=== PATIENT | male | born 1965 | race Caucasian/White ===

== ENCOUNTER 2020-05-26 18:53 | Emergency (ER) | payer MEDICAID, SELFPAY ==
[2020-05-26 19:21] VITALS: BP 187/98; PULSE 72; RESP 16; TEMP 36.7; O2SAT 96; BMI 36.3
--- NOTE | 2020-05-26 19:25 | XR_ITS ---
PROCEDURE: XR FOREARM RT 2V CLINICAL INDICATION: FALL Posttraumatic pain COMPARISON: CR XR HAND RT MIN 3V from 05/26/2020 CR XR WRIST RT MIN 3V from 05/26/2020 FINDINGS: No fracture or dislocation. No lytic or blastic change. There is normal mineralization. Minimal degenerative changes at the DRUJ the with minimal hypertrophic changes of the ulnar styloid and mild ulnar minus variant. Other findings:None. IMPRESSION: No acute fracture. 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
[2020-05-26 19:31] VITALS: BP 176/107; PULSE 81; RESP 14; TEMP 36.6; O2SAT 97; BMI 32.3
--- NOTE | 2020-05-26 19:54 | HMH.EDUTC ---
[facility] Disposition Clinical Impression: Sprain and strain Disposition: Home, Self-Care Condition on Discharge: Good Instructions: Wrist Sprain, DI for Wrist Sprain Additional Instructions: elevated ice for 20 mins and repeat every hour follow up with ortho if worsen return or be seen in ed. bimal Referrals: PCP,No [Primary Care Provider] - Time of Disposition: 20:49 Medical Decision Making - Darío Inquiry Pt receiving controlled substance: No Vital Signs: 05/26/20 19:21 05/26/20 19:31 Temperature 98.1 F 98 F Temperature Source Oral Oral Pulse Rate [Left] 72 81 Respiratory Rate 16 14 Blood Pressure [Left Arm] 187/98 H 176/107 H Blood Pressure Mean [Left Arm] 127 130 Blood Pressure Source [Left Arm] Automatic Cuff Automatic Cuff Blood Pressure Position [Left Arm] Sitting Sitting 02 Sat by Pulse Oximetry 96 97 Oxygen Delivery Method Room Air Room Air Orders (Tests/Meds): ORDERS Category Date Time Status XR forearm RT 2V Stat Exams 05/26/20 19:25 Taken XR hand RT min 3V Stat Exams 05/26/20 19:25 Taken XR wrist RT min 3V Stat Exams 05/26/20 19:25 Taken [facility] HPI - General Chief complaint: Urgent Treatment Center Stated complaint: [id number] fell injured rt arm and rt hand Time Seen by Provider: 05/26/20 19:54 Mode of Arrival: Ambulatory Source of Information: Patient Limitations: No Limitations Description of Symptoms (Recalled from Triage Doc. by RN): PT FELL ON ICE AND IS HAVING PAIN IN HIS R HAND AND LOWER ARM. HEENT Symptoms (Recalled from RN notes): No Resp Symptoms (Recalled from RN notes): No Skin Symptoms (Recalled from RN notes): No MS Symptoms (Recalled from RN notes): Yes (LOWER R ARM PAIN AND HAND) Functional Status (Recalled from RN notes): NA - History of Present Illness Provider Complaint: 54 yr old male presents for rt hand and arm pain. Pt states he fell a few days ago and injuired hand but then fell again and now arm and hand hurt. - Related Data Allergies Allergy/AdvReac Type Severity Reaction Status Date / Time No Known Allergies Allergy Verified 05/26/20 19:39 - Worker's Comp Is this a Worker's Comp case?: No [facility] History - Hepatitis A Screen Drug use history?: No High risk sexual behaviors?: No History of sexually transmitted infection?: No Currently employed?: No Childcare worker?: No Do you have indoor plumbing?: Yes Do you have electricity?: Yes Attestation statement:: This patient has been screened for Hepatitis A risk factors. I have reviewed the patient's past medical history: Yes - Social History Smoking Status: Current every day smoker # Packs/Day (cigarettes): 1 Alcohol Intake: never Occupational Status: other ROS Obtained: Yes Systems reviewed as appropriate & no additional complaints - Constitutional Constitutional: Reports system reviewed and no additional complaints, except as docu, Denies fever(s) - Eyes Eyes: Reports system reviewed and no additional complaints, except as docu, Denies eye discharge - ENT Ears, Nose, Mouth, and Throat: Reports system reviewed and no additional complaints, except as docu, Denies sore throat - Cardiovascular Cardiovascular: Reports system reviewed and no additional complaints, except as docu, Denies chest pain - Respiratory Respiratory: Reports system reviewed and no additional complaints, except as docu, Denies chest congestion - Gastrointestinal Gastrointestingal: Reports: system reviewed and no additional complaints, except as docu. Denies: nausea, vomiting - Genitourinary Male Genitourinary: Reports system reviewed and no additional complaints, except as docu - Musculoskeletal Musculoskeletal: Reports system reviewed and no additional complaints, except as docu, Reports joint pain, Reports limited range of motion, Reports radiating pain into limb - Integumentary/Breasts Skin/Breast: Reports system reviewed and no additional complaints, except as docu, Denies rash, Reports wounds
[2020-05-26 20:49] VITALS: BP 170/104; PULSE 83; RESP 14; TEMP 36.6
== END 2020-05-26 20:50 | disposition home or self-care (01) ==
PROVIDERS: Emergency Provider Nurse Practitioner Family
DX: S60.221A Contusion of right hand, initial encounter (principal); W00.0XXA Fall on same level due to ice and snow, initial encounter; Y92.018 Other place in single-family (private) house as the place of occurrence of the external cause; F17.210 Nicotine dependence, cigarettes, uncomplicated
CPT/HCPCS: 73090; 73110; 73130; 99202; G0463